=== PATIENT | female | born 1965 | race Caucasian/White ===

== ENCOUNTER 2017-08-10 10:16 | Emergency (ER) | payer SELFPAY ==
[~2017-08-10] VITALS: Ht 162.6 cm; Wt 65.0 kg
[~2017-08-10 10:16] MED LIST: ADIPEX-P37.5 MG OR; CELEXA20 MG PO; COLCRYS0.6 MG PO; CYCLOBENZAPR5 MG PO; FLEXERIL5 MG PO; FLUOXETINE40 MG PO; LISINOPRIL10 MG OR; LORTAB 7.5 OR; LORTAB5 OR; LOSARTAN POT50 MG PO; MAXZIDE OR; NAPROSYN375 MG PO; PROZAC20 MG PO; TENORMIN OR; TENORMIN25 MG OR; TENORMIN50 MG PO; TIZANIDINE4 MG PO; TORADOL OR; VICODIN1 TAB OR; VICOPROFEN OR
[2017-08-10] MEDS ORDERED: MAXZIDE-2537.5 MG/TA PO (10:45)
[2017-08-10] MEDS ORDERED: TRAMADOL HCL50 MG PO (10:47)
[2017-08-10] MEDS ORDERED: HYDROXYCHLOR200 M1 PO (10:48)
[2017-08-10] MEDS ORDERED: GABAPENTIN100 MG PO (10:49)
[2017-08-10] MEDS ORDERED: METOPROL TAR25 MG PO (10:49)
[2017-08-10] MEDS ORDERED: LISINOPRIL10 MG PO (10:50)
[2017-08-10] MEDS ORDERED: METHOCARBAM500 MG PO (10:51)
[2017-08-10 11:29] LABS: HEMATOCRIT 37.7 % (37.0-47.0); HEMOGLOBIN 13.2 g/dl (12.0-16.0); IMMATURE GRANULOCYTES 0.7 % (0.0-1.0); MEAN CELL VOLUME 100.3 fL CALC (80.0-100.0); MEAN CORPUSCULAR HGB 35.1 pG CALC (26.0-32.0); NEUT# 7.35 thou/uL (2.00-7.15); RED BLOOD COUNT 3.76 mill/uL (4.20-5.60); RED CELL DISTRI WIDTH 11.9 % (11.5-15.5)
[2017-08-10 11:39] LABS: ALBUMIN 4.4 g/dL (3.2-5.0); ALKALINE PHOSPHATASE 87 u/l (38-126); ANION GAP 17 (6-22 (CALC)); BILIRUBIN, TOTAL 0.4 mg/dL (0.0-1.4); BUN 15 mg/dL (7-17); BUN/CREATININE RATIO 16 (12-20 (CALC)); CALCIUM 9.9 mg/dL (8.4-10.2); CARBON DIOXIDE 23 mmol/l (22-30); CHLORIDE 101 mmol/l (95-108); CREATININE 0.9 mg/dL (0.5-1.0); GFR > 60 ML/MIN (>=60 (CALC)); GFR FOR AFR.AMER. > 60 ML/MIN (>=60 (CALC)); GLUCOSE 110 mg/dL (65-105); POTASSIUM 4.5 mmol/l (3.5-5.1); SGOT/AST 22 u/l (14-36); SGPT/ALT 34 u/l (9-52); SODIUM 136 mmol/l (137-146); TOTAL PROTEIN 6.9 g/dL (6.3-8.2)
[2017-08-10] MEDS ORDERED: INDOCIN25 MG PO (11:54)
[2017-08-10] MEDS ORDERED: ULTRAM50 M1 PO (11:54)
[2017-08-10] MEDS ORDERED: AMOXICILLIN500 MG PO (11:54)
[2017-08-10 12:11] VITALS: BP 125/81
== END 2017-08-10 12:11 | disposition home or self-care (01) | DRG 554 ==
LOC: ED 10:16
PROVIDERS: Emergency Medicine
DX: M10.9 Gout, unspecified (principal); L03.031 Cellulitis of right toe; M25.474 Effusion, right foot; M25.571 Pain in right ankle and joints of right foot

== ENCOUNTER 2018-08-20 08:51 | Emergency (ER) | payer MEDICARE ==
[~2018-08-20] VITALS: Ht 162.6 cm; Wt 68.0 kg
[~2018-08-20 08:51] MED LIST changes: +AMOXICILLIN500 MG PO; +GABAPENTIN100 MG PO; +HYDROXYCHLOR200 M1 PO; +INDOCIN25 MG PO; +LISINOPRIL10 MG PO; +MAXZIDE-2537.5 MG/TA PO; +METHOCARBAM500 MG PO; +METOPROL TAR25 MG PO; +TRAMADOL HCL50 MG PO; +ULTRAM50 M1 PO
[2018-08-20] MEDS ORDERED: TORADOL PO (09:25)
[2018-08-20] MEDS ORDERED: MEDDOSEPAK PO (09:25)
[2018-08-20 09:29] VITALS: BP 132/83
[2018-08-20] MEDS ORDERED: DICLOFENAC50 MG PO (09:42)
== END 2018-08-20 09:47 | disposition home or self-care (01) ==
LOC: ED 08:51
DX: G89.29 Other chronic pain (principal); M54.5 Low back pain; X50.1XXA Overexertion from prolonged static or awkward postures, initial encounter; Y92.009 Unspecified place in unspecified non-institutional (private) residence as the place of occurrence of the external cause

== ENCOUNTER → 2018-10-12 | Outpatient (REF) | payer MEDICARE ==
[~2018-10-12] MED LIST changes: +DICLOFENAC50 MG PO; +MEDDOSEPAK PO; +TORADOL PO
[2018-10-12 14:09] LABS: HEMATOCRIT 35.8 % (37.0-47.0); HEMOGLOBIN 12.6 g/dl (12.0-16.0); MEAN CELL VOLUME 100.6 fL CALC (80.0-100.0); MEAN CORPUSCULAR HGB 35.4 pG CALC (26.0-32.0); MEAN CORPUSCULAR HGB CONC 35.2 g/L CALC (32.0-36.0); NEUT# 5.55 thou/uL (2.00-7.15); RED BLOOD COUNT 3.56 mill/uL (4.20-5.60); RED CELL DISTRI WIDTH 11.9 % (11.5-15.5)
[2018-10-12 14:21] LABS: INTERNATIONAL NORMALIZED RATIO 0.9 RATIO (0.7-1.3); PROTHROMBIN TIME 9.6 SECONDS (9.0-12.5)
[2018-10-12 14:23] LABS: ALKALINE PHOSPHATASE 82 u/l (38-126); ANION GAP 13 (6-22 (CALC)); BILIRUBIN, TOTAL 0.3 mg/dL (0.0-1.4); BUN 17 mg/dL (7-17); BUN/CREATININE RATIO 17 (12-20 (CALC)); CARBON DIOXIDE 26 mmol/l (22-30); CHLORIDE 95 mmol/l (95-108); GFR 58 ML/MIN (>=60 (CALC)); GFR FOR AFR.AMER. > 60 ML/MIN (>=60 (CALC)); POTASSIUM 4.3 mmol/l (3.5-5.1); SGOT/AST 16 u/l (14-36); SODIUM 131 mmol/l (137-146); TOTAL PROTEIN 6.5 g/dL (6.3-8.2)
== END | disposition home or self-care (01) ==
LOC: LAB 13:19
PROVIDERS: ATTEND Internal Medicine Cardiovascular Disease
DX: I25.119 Atherosclerotic heart disease of native coronary artery with unspecified angina pectoris (principal); I10 Essential (primary) hypertension; R06.02 Shortness of breath; Z79.02 Long term (current) use of antithrombotics/antiplatelets

== ENCOUNTER 2019-10-19 | Emergency (ER) | payer MEDICARE ==
[2019-10-19] MEDS ORDERED: AMITRIPTYLIN10 MG PO (14:05)
[2019-10-19] MEDS ORDERED: LYRICA50 MG PO (14:06)
== END 2019-10-19 16:29 | disposition home or self-care (01) ==
DX: M25.531 Pain in right wrist (principal); I10 Essential (primary) hypertension; G62.9 Polyneuropathy, unspecified; H91.90 Unspecified hearing loss, unspecified ear; F17.210 Nicotine dependence, cigarettes, uncomplicated

== ENCOUNTER 2020-03-12 10:10 | Emergency (ER) | payer MEDICARE ==
[~2020-03-12] VITALS: Ht 162.6 cm; Wt 73.0 kg
[~2020-03-12 10:10] MED LIST changes: +AMITRIPTYLIN10 MG PO; +LYRICA50 MG PO
[2020-03-12 11:36] VITALS: BP 141/8
[2020-03-12] MEDS ORDERED: VOLTAREN1%GEL TOP (11:36)
== END 2020-03-12 11:45 | disposition home or self-care (01) ==
LOC: ED 10:10
DX: M54.5 Low back pain (principal); I10 Essential (primary) hypertension; G62.9 Polyneuropathy, unspecified; F17.210 Nicotine dependence, cigarettes, uncomplicated

== ENCOUNTER 2021-02-18 08:17 | Day surgery (SDC) | payer MEDICARE ==
[~2021-02-18 08:17] MED LIST changes: +FAMOTIDINE20 M1 PO; +FLUOXETINE20 MG PO; +GABAPENTIN800 MG PO; +KLONOPIN0.5 MG PO; +METOPROL TAR25 M1 PO; +PAIN RELIEF EX500 M1 PO; +VOLTAREN1%GEL TOP
[2021-02-18 11:03] VITALS: BP 148/78
--- NOTE | 2021-03-03 15:19 | NUR ---
PER PHYSICIAN, PATIENT NOTIFIED OF COLONOSCOPY REPORT, BIOPSY RESULTS, REPEAT X 10 YEARS. PATIENT AGREED WITH RESULTS GIVEN, REPORT, RESULTS FORWARDED TO PRIMARY CARE FOR CONTINUITY OF CARE. PT VOICED NO CONCERNS AT TIME OF CALL.
== END 2021-02-18 11:24 | disposition home or self-care (01) ==
LOC: ENDO 08:17
PROVIDERS: ATTEND Surgery
PROC: 0DBF8ZX Excision of Right Large Intestine, Via Natural or Artificial Opening Endoscopic, Diagnostic (ICD-10-PCS; principal; 2021-02-18)
PROC: 0DBN8ZX Excision of Sigmoid Colon, Via Natural or Artificial Opening Endoscopic, Diagnostic (ICD-10-PCS; 2021-02-18)
DX: Z12.11 Encounter for screening for malignant neoplasm of colon (principal); K63.5 Polyp of colon; K50.10 Crohn's disease of large intestine without complications; K64.8 Other hemorrhoids; K64.4 Residual hemorrhoidal skin tags; I10 Essential (primary) hypertension; F17.210 Nicotine dependence, cigarettes, uncomplicated

== ENCOUNTER 2021-04-15 18:50 | Emergency (ER) | payer MEDICARE ==
[~2021-04-15] VITALS: Ht 162.6 cm; Wt 70.0 kg
[2021-04-15 20:33] LABS: HEMATOCRIT 34.4 % (37.0-47.0); HEMOGLOBIN 11.8 g/dl (12.0-16.0); IMMATURE GRANULOCYTES 0.8 % (0.0-5.0); MEAN CELL VOLUME 101.8 fL CALC (80.0-100.0); MEAN CORPUSCULAR HGB 34.9 pG CALC (26.0-32.0); MEAN CORPUSCULAR HGB CONC 34.3 g/dL CAL (32.0-36.0); NEUT# 5.83 thou/uL (2.00-7.15); RED BLOOD COUNT 3.38 mill/uL (4.20-5.60); RED CELL DISTRI WIDTH 11.8 % (11.5-15.5)
[2021-04-15 20:47] LABS: ALBUMIN 3.2 g/dL (3.2-5.0); ALKALINE PHOSPHATASE 66 u/l (38-126); BILIRUBIN, TOTAL 0.5 mg/dL (0.0-1.4); BUN 10 mg/dL (7-17); BUN/CREATININE RATIO 10 (12-20 (CALC)); CHLORIDE 96 mmol/l (95-108); CREATININE 0.9 mg/dL (0.5-1.0); GFR > 60 ML/MIN (>=60 (CALC)); GFR FOR AFR.AMER. > 60 ML/MIN (>=60 (CALC)); POTASSIUM 3.5 mmol/l (3.5-5.1); SGOT/AST 38 u/l (14-36); SODIUM 126 mmol/l (137-146); TOTAL PROTEIN 6.2 g/dL (6.3-8.2)
[2021-04-15 20:53] LABS: PROTHROMBIN TIME 10.1 SECONDS (9.0-12.5)
[2021-04-15 20:57] LABS: ANION GAP 13 (6-22 (CALC)); CARBON DIOXIDE 21 mmol/l (22-30)
[2021-04-15 21:20] LABS: URINE BILIRUBIN - DIPSTICK NEGATIVE (NEGATIVE); URINE BLOOD DIPSTICK NEGATIVE (NEGATIVE); URINE COLOR YELLOW; URINE GLUCOSE - DIPSTICK NEGATIVE (NEGATIVE); URINE KETONE NEGATIVE (NEGATIVE); URINE LEUK ESTERASE TRACE (NEGATIVE); URINE NITRITE - DIPSTICK NEGATIVE (Negative); URINE PROTEIN - DIPSTICK NEGATIVE (NEG-TRACE); URINE SPECIFIC GRAVITY 1.015; URINE UROBILINOGEN - DIPSTICK 0.2 E.U./dL (0.2)
[2021-04-15 23:39] VITALS: BP 139/72
== END 2021-04-15 23:31 | disposition home or self-care (01) ==
LOC: ED 18:50
PROVIDERS: Emergency Medicine
DX: S01.412A Laceration without foreign body of left cheek and temporomandibular area, initial encounter (principal); E87.1 Hypo-osmolality and hyponatremia; I10 Essential (primary) hypertension; M32.9 Systemic lupus erythematosus, unspecified; F17.200 Nicotine dependence, unspecified, uncomplicated; W01.0XXA Fall on same level from slipping, tripping and stumbling without subsequent striking against object, initial encounter; Y93.K1 Activity, walking an animal

== ENCOUNTER 2021-07-23 11:49 | Emergency (ER) | payer MEDICARE ==
[~2021-07-23] VITALS: Ht 162.6 cm; Wt 60.3 kg
[2021-07-23] MEDS ORDERED: IBUPROFEN600 MG PO (14:41)
[2021-07-23 15:10] VITALS: BP 119/87
== END 2021-07-23 15:10 | disposition home or self-care (01) ==
LOC: ED 11:49
DX: S93.402A Sprain of unspecified ligament of left ankle, initial encounter (principal); I10 Essential (primary) hypertension; F17.200 Nicotine dependence, unspecified, uncomplicated; W10.9XXA Fall (on) (from) unspecified stairs and steps, initial encounter; Y93.K1 Activity, walking an animal; Y92.009 Unspecified place in unspecified non-institutional (private) residence as the place of occurrence of the external cause

== ENCOUNTER 2021-10-12 13:56 | Emergency (ER) | payer MEDICARE ==
[~2021-10-12] VITALS: Ht 162.6 cm; Wt 53.0 kg
[~2021-10-12 13:56] MED LIST changes: +IBUPROFEN600 MG PO
[2021-10-12 14:15] VITALS: BP 136/83
[2021-10-12 14:46] LABS: HEMATOCRIT 34.2 % (37.0-47.0); HEMOGLOBIN 11.1 g/dl (12.0-16.0); IMMATURE GRANULOCYTES 0.3 % (0.0-5.0); MEAN CELL VOLUME 105.2 fL CALC (80.0-100.0); MEAN CORPUSCULAR HGB 34.2 pG CALC (26.0-32.0); MEAN CORPUSCULAR HGB CONC 32.5 g/dL CAL (32.0-36.0); NEUT# 7.63 thou/uL (2.00-7.15); RED BLOOD COUNT 3.25 mill/uL (4.20-5.60)
[2021-10-12 14:55] LABS: ALKALINE PHOSPHATASE 106 u/l (38-126); ANION GAP 11 (6-22 (CALC)); BILIRUBIN, TOTAL 0.7 mg/dL (0.0-1.4); BUN 10 mg/dL (7-17); BUN/CREATININE RATIO 12 (12-20 (CALC)); CHLORIDE 102 mmol/l (95-108); CREATININE 0.8 mg/dL (0.5-1.0); GFR > 60 ML/MIN (>=60 (CALC)); GFR FOR AFR.AMER. > 60 ML/MIN (>=60 (CALC)); POTASSIUM 3.6 mmol/l (3.5-5.1); SGOT/AST 25 u/l (14-36); SODIUM 133 mmol/l (137-146); TOTAL PROTEIN 5.8 g/dL (6.3-8.2)
[2021-10-12 14:56] LABS: CARBON DIOXIDE 24 mmol/l (22-30)
[2021-10-12 15:07] LABS: MYOGLOBIN 160 ng/mL (0 - 62)
[2021-10-12] MEDS ORDERED: NAPROXEN500 MG PO (16:00)
[2021-10-12 16:04] VITALS: BP 136/83
== END 2021-10-12 16:07 | disposition home or self-care (01) ==
LOC: ED 13:56
PROVIDERS: Emergency Medicine
DX: S00.03XA Contusion of scalp, initial encounter (principal); I10 Essential (primary) hypertension; F17.200 Nicotine dependence, unspecified, uncomplicated; W01.0XXA Fall on same level from slipping, tripping and stumbling without subsequent striking against object, initial encounter; Y92.89 Other specified places as the place of occurrence of the external cause
CPT/HCPCS: J0878

== ENCOUNTER 2022-04-14 21:39 | Emergency (ER) | payer MEDICARE ==
[~2022-04-14] VITALS: Ht 162.6 cm; Wt 60.0 kg
[~2022-04-14 21:39] MED LIST changes: +NAPROXEN500 MG PO
[2022-04-14 21:54] VITALS: BP 154/86
[2022-04-14 22:00] VITALS: BP 153/85
[2022-04-14 22:31] VITALS: BP 170/97
[2022-04-14 22:35] LABS: IMMATURE GRANULOCYTES 0.4 % (0.0-5.0); MEAN CELL VOLUME 102.8 fL CALC (80.0-100.0); MEAN CORPUSCULAR HGB 34.5 pG CALC (26.0-32.0); MEAN CORPUSCULAR HGB CONC 33.5 g/dL CAL (32.0-36.0); NEUT# 7.21 thou/uL (2.00-7.15); RED BLOOD COUNT 3.19 mill/uL (4.20-5.60); RED CELL DISTRI WIDTH 12.9 % (11.5-15.5)
[2022-04-14 22:39] LABS: HEMATOCRIT 32.8 % (37.0-47.0)
[2022-04-14 23:02] LABS: MYOGLOBIN 87 ng/mL (0 - 62)
[2022-04-14 23:29] LABS: ALBUMIN 3.2 g/dL (3.2-5.0); ALKALINE PHOSPHATASE 81 u/l (38-126); BILIRUBIN, TOTAL 0.3 mg/dL (0.0-1.4); BUN 13 mg/dL (7-17); BUN/CREATININE RATIO 16 (12-20 (CALC)); CHLORIDE 110 mmol/l (95-108); CREATININE 0.8 mg/dL (0.5-1.0); GFR FOR AFR.AMER. > 60 ML/MIN (>=60 (CALC)); GFR OTHER RACES > 60 ML/MIN (>=60 (CALC)); POTASSIUM 3.6 mmol/l (3.5-5.1); SGOT/AST 22 u/l (14-36); SODIUM 142 mmol/l (137-146); TOTAL PROTEIN 5.9 g/dL (6.3-8.2)
[2022-04-14 23:30] VITALS: BP 160/85
[2022-04-14 23:38] LABS: ANION GAP 12 (6-22 (CALC)); CARBON DIOXIDE 24 mmol/l (22-30)
[2022-04-15] VITALS (8 sets, daily range): BP systolic 158–172; BP diastolic 89–97
[2022-04-15 01:21] LABS: URINE BILIRUBIN - DIPSTICK NEGATIVE (NEGATIVE); URINE BLOOD DIPSTICK NEGATIVE (NEGATIVE); URINE COLOR YELLOW; URINE GLUCOSE - DIPSTICK NEGATIVE (NEGATIVE); URINE KETONE NEGATIVE (NEGATIVE); URINE PH 5.5 (4.5-8.0); URINE PROTEIN - DIPSTICK NEGATIVE (NEG-TRACE); URINE UROBILINOGEN - DIPSTICK 0.2 E.U./dL (0.2)
[2022-04-15 01:22] LABS: URINE NITRITE - DIPSTICK POSITIVE (Negative)
[2022-04-15 01:24] LABS: URINE LEUK ESTERASE NEGATIVE (NEGATIVE)
[2022-04-15 01:37] LABS: URINE BACTERIA MANY hpf; URINE EPITHELIAL CELLS FEW EPI/hpf (0-FEW)
== END 2022-04-15 03:08 | disposition short-term general hospital (02) ==
LOC: ED 21:39
PROVIDERS: Emergency Medicine
DX: S72.142A Displaced intertrochanteric fracture of left femur, initial encounter for closed fracture (principal); W18.30XA Fall on same level, unspecified, initial encounter; Y92.009 Unspecified place in unspecified non-institutional (private) residence as the place of occurrence of the external cause

== ENCOUNTER 2022-06-07 13:26 | Emergency (ER) | payer MEDICARE ==
[~2022-06-07] VITALS: Ht 162.6 cm; Wt 56.0 kg
[2022-06-07 14:14] LABS: ALBUMIN 3.7 g/dL (3.2-5.0); ALKALINE PHOSPHATASE 92 u/l (38-126); AMYLASE 61 u/l (30-110); ANION GAP 12 (6-22 (CALC)); BILIRUBIN, TOTAL 0.3 mg/dL (0.0-1.4); BUN 13 mg/dL (7-17); BUN/CREATININE RATIO 19 (12-20 (CALC)); CARBON DIOXIDE 27 mmol/l (22-30); CHLORIDE 104 mmol/l (95-108); CREATININE 0.7 mg/dL (0.5-1.0); GFR FOR AFR.AMER. > 60 ML/MIN (>=60 (CALC)); GFR OTHER RACES > 60 ML/MIN (>=60 (CALC)); LIPASE 128 u/l (23-300); POTASSIUM 3.6 mmol/l (3.5-5.1); SGOT/AST 27 u/l (14-36); SODIUM 141 mmol/l (137-146); TOTAL PROTEIN 6.6 g/dL (6.3-8.2)
[2022-06-07 14:36] LABS: HEMATOCRIT 35.7 % (37.0-47.0); HEMOGLOBIN 11.4 g/dl (12.0-16.0); IMMATURE GRANULOCYTES 0.3 % (0.0-5.0); MEAN CELL VOLUME 101.7 fL CALC (80.0-100.0); MEAN CORPUSCULAR HGB 32.5 pG CALC (26.0-32.0); MEAN CORPUSCULAR HGB CONC 31.9 g/dL CAL (32.0-36.0); NEUT# 4.34 thou/uL (2.00-7.15); RED BLOOD COUNT 3.51 mill/uL (4.20-5.60); RED CELL DISTRI WIDTH 12.6 % (11.5-15.5)
[2022-06-07 15:22] LABS: URINE BILIRUBIN - DIPSTICK NEGATIVE (NEGATIVE); URINE BLOOD DIPSTICK TRACE-LYSED (NEGATIVE); URINE COLOR YELLOW; URINE GLUCOSE - DIPSTICK NEGATIVE (NEGATIVE); URINE KETONE NEGATIVE (NEGATIVE); URINE LEUK ESTERASE TRACE (NEGATIVE); URINE PH 5.5 (4.5-8.0); URINE PROTEIN - DIPSTICK NEGATIVE (NEG-TRACE); URINE UROBILINOGEN - DIPSTICK 0.2 E.U./dL (0.2)
[2022-06-07 15:27] LABS: URINE NITRITE - DIPSTICK POSITIVE (Negative)
[2022-06-07 15:36] LABS: URINE RBC 0-2 RBC/hpf (0-5); URINE SQUAMOUS EPITHELIAL CELL FEW EPI/hpf (0-FEW)
[2022-06-07 17:44] VITALS: BP 131/77
[2022-06-07] MEDS ORDERED: NAPROXEN500 MG PO (17:52)
[2022-06-07] MEDS ORDERED: HYDROCO/APAP1 TA9 PO (17:52)
== END 2022-06-07 18:32 | disposition home or self-care (01) ==
LOC: ED 13:26
PROVIDERS: Nurse Practitioner
DX: S22.32XA Fracture of one rib, left side, initial encounter for closed fracture (principal); I10 Essential (primary) hypertension; F17.200 Nicotine dependence, unspecified, uncomplicated; W01.0XXA Fall on same level from slipping, tripping and stumbling without subsequent striking against object, initial encounter; Y92.009 Unspecified place in unspecified non-institutional (private) residence as the place of occurrence of the external cause; Y99.9 Unspecified external cause status
CPT/HCPCS: Q9967

== ENCOUNTER 2023-03-21 12:13 | Emergency (ER) | payer MEDICARE ==
[~2023-03-21] VITALS: Ht 162.6 cm; Wt 70.6 kg
[2023-03-21] VITALS (7 sets, daily range): BP systolic 121–175; BP diastolic 84–91
[~2023-03-21 12:13] MED LIST changes: +HYDROCO/APAP1 TA9 PO
[2023-03-21] MEDS ORDERED: METHOCARBAMOL500 MG PO (13:55)
[2023-03-21] MEDS ORDERED: NAPROXEN500 MG PO (13:55)
[2023-03-21] MEDS ORDERED: PREDNISONE10 MG PO (13:55)
[2023-03-21] MEDS ORDERED: LORTAB 7.57.5 MG PO (14:04)
== END 2023-03-21 14:54 | disposition home or self-care (01) ==
LOC: ED 12:13
DX: M47.27 Other spondylosis with radiculopathy, lumbosacral region (principal); I10 Essential (primary) hypertension; F17.200 Nicotine dependence, unspecified, uncomplicated

== ENCOUNTER 2023-04-12 13:19 | Emergency (ER) | payer MEDICARE ==
[2023-04-12] VITALS (14 sets, daily range): BP systolic 147–171; BP diastolic 82–123
[~2023-04-12] VITALS: Ht 162.6 cm; Wt 65.7 kg
[~2023-04-12 13:19] MED LIST changes: +LORTAB 7.57.5 MG PO; +METHOCARBAMOL500 MG PO; +OMEPRAZOLE DR40 MG PO; +PREDNISONE10 MG PO
[2023-04-12 16:30] LABS: BASO% 0.2 % (0-3); EOS% 2.2 % (0-8); HEMATOCRIT 40.8 % (37.0-47.0); HEMOGLOBIN 13.1 g/dl (12.0-16.0); IMMATURE GRANULOCYTES 0.3 % (0.0-5.0); LYMPH% 14.2 % (15-41); MEAN CELL VOLUME 101.2 fL CALC (80.0-100.0); MEAN CORPUSCULAR HGB 32.5 pG CALC (26.0-32.0); MEAN CORPUSCULAR HGB CONC 32.1 g/dL CAL (32.0-36.0); MONO% 4.6 % (2-13); NEUT# 10.1 thou/uL (2.00-7.15); NEUT% 78.5 % (42-76); RED BLOOD COUNT 4.03 mill/uL (4.20-5.60); RED CELL DISTRI WIDTH 13.2 % (11.5-15.5)
[2023-04-12 16:33] LABS: URINE BILIRUBIN - DIPSTICK Negative (NEGATIVE); URINE BLOOD DIPSTICK Trace-intact (NEGATIVE); URINE GLUCOSE - DIPSTICK Negative (NEGATIVE); URINE KETONE Negative (NEGATIVE); URINE NITRITE - DIPSTICK Negative (Negative); URINE PROTEIN - DIPSTICK Negative (NEG-TRACE); URINE UROBILINOGEN - DIPSTICK 0.2 E.U./dL (0.2)
[2023-04-12 16:34] LABS: URINE COLOR Yellow; URINE LEUK ESTERASE Small (NEGATIVE)
[2023-04-12 16:42] LABS: ALBUMIN 3.5 g/dL (3.2-5.0); ANION GAP 10 (6-22 (CALC)); BILIRUBIN, TOTAL 0.4 mg/dL (0.02-1.3); BUN 12 mg/dL (7-17); BUN/CREATININE RATIO 14 (12-20 (CALC)); CARBON DIOXIDE 29 mmol/l (22-30); CHLORIDE 106 mmol/l (95-108); CREATININE 0.9 mg/dL (0.5-1.0); GFR FOR AFR.AMER. > 60 ML/MIN (>=60 (CALC)); GFR OTHER RACES > 60 ML/MIN (>=60 (CALC)); POTASSIUM 3.6 mmol/l (3.5-5.1); SGOT/AST 34 u/l (14-36); SODIUM 142 mmol/l (137-146); TOTAL PROTEIN 6.8 g/dL (6.3-8.2)
[2023-04-12 16:47] LABS: ALKALINE PHOSPHATASE 269 u/l (38-126)
--- NOTE | 2023-04-14 11:17 | NUR ---
[facility] ed [facility] to KATIE herrera at fax [phone]
== END 2023-04-12 18:20 | disposition short-term general hospital (02) ==
LOC: ED 13:19
PROVIDERS: Nurse Practitioner
DX: M84.48XA Pathological fracture, other site, initial encounter for fracture (principal); N39.0 Urinary tract infection, site not specified; B96.20 Unspecified Escherichia coli [E. coli] as the cause of diseases classified elsewhere; I10 Essential (primary) hypertension; F17.200 Nicotine dependence, unspecified, uncomplicated

== ENCOUNTER 2023-10-18 14:56 | Emergency (ER) | payer MEDICARE ==
[2023-10-18] VITALS (12 sets, daily range): BP systolic 159–197; BP diastolic 94–116
[~2023-10-18] VITALS: Ht 162.6 cm; Wt 62.0 kg
[2023-10-18] MEDS ORDERED: NITROGLYCERIN 2% OINT UD 1 GM/PAK TD ONE (15:45)
[2023-10-18] MEDS ORDERED: ASPIRIN 81 MG/TAB PO ONE (15:45)
[2023-10-18 16:00] LABS: BASO% 0.2 % (0-3); HEMATOCRIT 40.8 % (37.0-47.0); HEMOGLOBIN 13.6 g/dl (12.0-16.0); IMMATURE GRANULOCYTES 0.6 % (0.0-5.0); LYMPH% 50.2 % (15-41); MEAN CELL VOLUME 102.3 fL CALC (80.0-100.0); MEAN CORPUSCULAR HGB 34.1 pG CALC (26.0-32.0); MEAN CORPUSCULAR HGB CONC 33.3 g/dL CAL (32.0-36.0); MONO% 14.2 % (2-13); NEUT# 2.23 thou/uL (2.00-7.15); NEUT% 34.8 % (42-76); RED BLOOD COUNT 3.99 mill/uL (4.20-5.60); RED CELL DISTRI WIDTH 14.5 % (11.5-15.5)
[2023-10-18 16:24] LABS: ALBUMIN 3.2 g/dL (3.2-5.0); ALKALINE PHOSPHATASE 186 u/l (38-126); ANION GAP 8 (6-22 (CALC)); BILIRUBIN, TOTAL 0.5 mg/dL (0.02-1.3); BUN 12 mg/dL (7-17); BUN/CREATININE RATIO 17 (12-20 (CALC)); CARBON DIOXIDE 29 mmol/l (22-30); CHLORIDE 106 mmol/l (95-108); CREATININE 0.7 mg/dL (0.5-1.0); GFR FOR AFR.AMER. > 60 ML/MIN (>=60 (CALC)); GFR OTHER RACES > 60 ML/MIN (>=60 (CALC)); LIPASE 102 u/l (23-300); POTASSIUM 3.2 mmol/l (3.5-5.1); SGOT/AST 47 u/l (14-36); SODIUM 140 mmol/l (137-146)
[2023-10-18 16:25] LABS: D-DIMER 0.65 mg/L (0.19-0.60)
[2023-10-18 16:27] LABS: INTERNATIONAL NORMALIZED RATIO 1.1 RATIO (0.7-1.3); PROTHROMBIN TIME 10.6 SECONDS (9.0-12.5)
[2023-10-18 16:35] LABS: URINE BILIRUBIN - DIPSTICK Negative (NEGATIVE); URINE BLOOD DIPSTICK Trace-lysed (NEGATIVE); URINE GLUCOSE - DIPSTICK Negative (NEGATIVE); URINE KETONE Negative (NEGATIVE); URINE LEUK ESTERASE Negative (NEGATIVE); URINE NITRITE - DIPSTICK Negative (Negative); URINE PROTEIN - DIPSTICK Negative (NEG-TRACE); URINE UROBILINOGEN - DIPSTICK 0.2 E.U./dL (0.2)
[2023-10-18] MEDS ORDERED: DILTIAZEM HCL 25 MG/5 ML SDV IV ONE (16:35)
[2023-10-18 16:38] LABS: URINE COLOR Yellow
[2023-10-18] MEDS ORDERED: PREDNISONE20 MG PO (17:32)
[2023-10-18] MEDS ORDERED: IBUPROFEN 800 MG/TAB PO ONE (17:35)
== END 2023-10-18 18:21 | disposition home or self-care (01) ==
LOC: ED 14:56
PROVIDERS: Family Medicine
DX: I10 Essential (primary) hypertension (principal); M32.9 Systemic lupus erythematosus, unspecified; F17.210 Nicotine dependence, cigarettes, uncomplicated

== ENCOUNTER 2024-03-06 04:33 | Inpatient (IN) | payer MEDICARE ==
[2024-03-06] VITALS (55 sets, daily range): BP systolic 123–193; BP diastolic 62–109
[~2024-03-06] VITALS: Ht 162.6 cm; Wt 60.4 kg
[~2024-03-06 04:33] MED LIST changes: +ASPIRINCHW 81MG PO; +CARISOPRODOL250 MG PO; +DOXYCYCLINE100 MG PO; +FLORASTOR250 M1 PO; +FLUTICASONE PR50 MC1; +IPRATROPIUM BR0.02 % NEB; +KLONOPIN1 MG PO; +LEVOFLOXACIN250 M1 PO; +MULTIVITAMIN1 TA1 PO; +OS-CAL 500500 M1 PO; +PREDNISONE20 MG PO; +PROZAC40 MG PO; +TAM75CAP PO; +TRAZODONE HCL50 MG PO; +VITAMIN D-32000 UNI1 PO; +WELLBUTRIN XL300 MG PO
--- NOTE | 2024-03-06 04:33 | NUR ---
PT ARRIVED VIA EMS ON STRETCHER. TAKEN TO ROOM 13. TRIAGED AT BEDSIDE. PT ON O2 @2 LPM
[2024-03-06] MEDS ORDERED: MORPHINE SULFATE 4 MG/ML VIAL IV ONE (04:50)
[2024-03-06] MEDS ORDERED: LOSARTAN POTASS50 MG PO (05:24)
[2024-03-06] MEDS ORDERED: LASIX 20 MG TAB20 MG PO (05:24)
[2024-03-06] MEDS ORDERED: NARCAN4 MG/0.1 M (05:25)
[2024-03-06] MEDS ORDERED: OXY1 (05:26)
[2024-03-06] MEDS ORDERED: TRELEGY ELLIPTA1 AE1 IN (05:28)
--- NOTE | 2024-03-06 06:00 | NUR ---
PT RESTING. MEDICATED. XRAY/EKG COMPLETED. LABS DRAWN. PT VOIDED ON BEDPAN.
[2024-03-06 06:07] LABS: BASO% 0.2 % (0-3); EOS% 0.6 % (0-8); HEMOGLOBIN 11.9 g/dl (12.0-16.0); IMMATURE GRANULOCYTES 0.2 % (0.0-5.0); LYMPH% 18.9 % (15-41); MEAN CELL VOLUME 97.1 fL CALC (80.0-100.0); MEAN CORPUSCULAR HGB 31.4 pG CALC (26.0-32.0); MEAN CORPUSCULAR HGB CONC 32.3 g/dL CAL (32.0-36.0); MONO% 8.4 % (2-13); NEUT# 8.93 thou/uL (2.00-7.15); NEUT% 71.7 % (42-76); RED BLOOD COUNT 3.79 mill/uL (4.20-5.60); RED CELL DISTRI WIDTH 13.9 % (11.5-15.5)
[2024-03-06 06:08] LABS: HEMATOCRIT 36.8 % (37.0-47.0)
[2024-03-06 06:16] LABS: ALBUMIN 3.7 g/dL (3.2-5.0); CREATININE 0.9 mg/dL (0.5-1.0); POTASSIUM 3.7 mmol/l (3.5-5.1); TOTAL PROTEIN 6.8 g/dL (6.3-8.2)
[2024-03-06 06:22] LABS: BILIRUBIN, TOTAL 1.1 mg/dL (0.02-1.3)
--- NOTE | 2024-03-06 07:05 | NUR ---
ASSUMED CARE OF THE PATIENT FROM OSMANI GEORGE RN. BP ELEVATED TO 190/108. SPOKE WITH DR. ROMERO AND LABETOLOL 20MG ORDERED.
[2024-03-06] MEDS ORDERED: LABETALOL HCL 100 MG/20 ML VIAL IV ONE ×2 (07:30→08:40)
--- NOTE | 2024-03-06 08:21 | NUR ---
PATIENT TAKEN TO RADIOLOGY FOR CTA OF THE CHEST. R/O PE
--- NOTE | 2024-03-06 08:47 | NUR ---
AN ADDITIONAL 20MG OF LABETOLOL ORDERED BY DR. ROMERO. BP DECREASED SLOWLY AND ONCE PATIENT RETURNED [facility] IT WENT RIGHT BACK UP TO 190/108.
[2024-03-06] MEDS ORDERED: AZITHROMYCIN 500 MG in SODIUM CHLORIDE 0.9% 250 ML IV ONE (09:10)
[2024-03-06] MEDS ORDERED: cefTRIAXone SODIUM 2 GM in SODIUM CHLORIDE 0.9% 100 ML IV ONE (09:10)
--- NOTE | 2024-03-06 10:00 | NUR ---
AN ADDITIONAL IV INITIATED IN THERIGHT AC, 18G. ROCEPHIN GIVEN AND CARDENE GTT INITIATED PER HOSPITAL PROTOCOL. VERBAL REPORT CALLED TO ICU.
--- NOTE | 2024-03-06 10:00 | NUR ---
pts nausea resolved, all her regular po meds given , pain 0/10 with good relief from meds. pt resting vomfortably. given small sips of water no nausea. all cardiac monitors on. call sosa prado.
[2024-03-06] MEDS ORDERED: AZITHROMYCIN 500 MG/VIAL SDV IV ONE (10:01)
[2024-03-06] MEDS ORDERED: niCARdipine HCL 25 MG/10 ML SDV IV ONE (10:02)
[2024-03-06] MEDS ORDERED: NITROGLYCERIN 0.4 MG/TAB SL PRN (11:25)
[2024-03-06] MEDS ORDERED: MORPHINE SULFATE 4 MG/ML VIAL IV PRN (11:25)
[2024-03-06] MEDS ORDERED: ACETAMINOPHEN 325 MG/TAB PO PRN (11:35)
[2024-03-06] MEDS ORDERED: MAGNESIUM HYDROXIDE 30 ML UDC PO PRN (11:35)
[2024-03-06] MEDS ORDERED: clonazePAM 1 MG/TAB PO PRN (11:45)
--- NOTE | 2024-03-06 12:00 | NUR ---
REPORT RECEIVED OVER THE PHONE FROM KATIE AVITIA. PT BROUGHT UP TO ICU BY STRETCHER AT 1115 ON OXYGEN AND WITH CARDENE GTT INFUSING. PT WAS ABLE TO AMBULATE A FEW STEPS FROM STRETCHER TO BED WITH MINIMAL ASSISTANCE. PT IS A/O. LUNGS DIMINISHED UPPER, COARSE LOWER. PT IS ON 2L NC WHICH SHE STATES SHE WEARS AT HOME. NO COUGH NOTED BUT SOB WITH ACTIVITY NOTED. PT IS NSR ON MONITOR. BS ACTIVE; ABDOMEN SOFT/NON-TENDER. PT REPORTS LAST BM WAS YESTERDAY. PT UP TO BEDSIDE COMMODE TO VOID X 2. PULSES STRONG ALL EXTREMETIES. SKIN W/D/I; SOME BRUISING NOTED ON BILATERAL ARMS. AFEBRILE. CARDENE GTT REMAINS ON; PT'S BP CONTROLLED AT THIS TIME. WILL ATTEMPT TO TITRATE OFF BP ALLOWS. ALL OTHER VSS. PT GIVEN CALL LIGHT AND INSTRUCTED TO NOT GET OUT OF BED WITHOUT ASSISTANCE.
[2024-03-06] MEDS ORDERED: IPRATROPIUM-Albuterol 0.5MG-2.5MG/3 ML NEB PRN (12:20)
[2024-03-06] MEDS ORDERED: METOPROLOL TARTRATE 25 MG/TAB PO SCH (12:30)
[2024-03-06 12:33] LABS: URINE BILIRUBIN - DIPSTICK Negative (NEGATIVE); URINE BLOOD DIPSTICK Negative (NEGATIVE); URINE COLOR Yellow; URINE GLUCOSE - DIPSTICK Negative (NEGATIVE); URINE KETONE Negative (NEGATIVE); URINE LEUK ESTERASE Negative (NEGATIVE); URINE NITRITE - DIPSTICK Negative (Negative); URINE PROTEIN - DIPSTICK Negative (NEG-TRACE); URINE UROBILINOGEN - DIPSTICK 0.2 E.U./dL (0.2)
[2024-03-06] MEDS ORDERED: ONDANSETRON HCl 4 MG/2 ML SDV IV PRN (13:15)
--- NOTE | 2024-03-06 13:25 | NUR ---
PT WAS FEELING NAUSEATED AND VOMITED SMALL AMOUNT. ORDER RECEIVED FOR IV ZOFRAN WHICH WAS GIVEM, WELL PRN MORPHONE FOR PT'S REPORTED 10/10 PAIN FROM HEADACHE.
[2024-03-06] MEDS ORDERED: IPRATROPIUM-Albuterol 0.5MG-2.5MG/3 ML NEB SCH (15:00)
--- NOTE | 2024-03-06 15:00 | NUR ---
NO CHANGES TO PT STATUS. STILL COMPLAINING OF HEADACHE. PT GIVEN ICE PACK FOR COMFORT. VSS. CARDENE GTT TURNED OFF.
--- NOTE | 2024-03-06 17:00 | NUR ---
PT STILL COMPLAINING OF HEADACHE AND VOMITED SMALL AMOUNT. COMFORT MEASURES PROVIDED. VSS.
--- NOTE | 2024-03-06 18:00 | NUR ---
PT MEDICATED FOR HEADACHE AND NAUSEA. PT REMAINS AFEBRILE THOUGH SHE STATES SHE IS HOT. PT REMAINS OFF OF CARDENE GTT. VSS.
[2024-03-06] MEDS ORDERED: Pantoprazole Sodium 40 MG VIAL (Protonix) IV SCH ×2 (19:50→21:00)
[2024-03-06] MEDS ORDERED: DiphenhydrAMINE HCL 50 MG/ML SDV IV ONE (19:50)
[2024-03-06] MEDS ORDERED: KETOROLAC TROMETHAMINE 30 MG/ML SDV IV ONE (19:50)
[2024-03-06] MEDS ORDERED: METOCLOPRAMIDE HCL 10 MG/2 ML SDV IV ONE (19:50)
[2024-03-06] MEDS ORDERED: BUTALBITAL-APAP-CAFFEINE 50-325-40 TAB PO PRN (19:55)
[2024-03-06] MEDS ORDERED: PROMETHAZINE HCL 25 MG/ML AMP IV PRN (19:55)
--- NOTE | 2024-03-06 20:00 | NUR ---
pt assessed , 10/10 pain headach sensative to light , assisted off bedside commode and to bed. ptcomplains of left hip pain from a fall at home. When asked if she had an xray or saw anyone for it she stated no. will pass on in dayshift pt would like this evaluated during this admission.Pt was then vomiting and dry heaving . spoke to DR. Pradhan about her current situation , Dr. pradhan ordered meds. see order and MAR . pt was medicated with good effect . DR Rodriguez had a video visit with the pt and ordered catapress patch.
[2024-03-06] MEDS ORDERED: cloNIDine TRANSDERMAL 0.2MG/24 HR 7-DAY PATCH TD SCH (20:30)
[2024-03-06] MEDS ORDERED: ATORVASTATIN CALCIUM 40 MG/TAB PO SCH (21:00)
[2024-03-06] MEDS ORDERED: traZODone HCL 50 MG/TAB PO SCH (21:00)
[2024-03-06] MEDS ORDERED: ENOXAPARIN SODIUM 40 MG/0.4 ML SYR SC SCH (21:00)
[2024-03-06] MEDS ORDERED: HYDROXYCHLOROQUINE SULFATE 200 MG/TAB PO SCH (21:00)
[2024-03-06] MEDS ORDERED: methylPREDNISolone Sod Succ 40 MG/ML SDV IV SCH (21:00)
[2024-03-06] MEDS ORDERED: GABAPENTIN 300 MG/CAP PO SCH (21:00)
[2024-03-06] MEDS ORDERED: GABAPENTIN 100 MG/CAP PO SCH (21:00)
[2024-03-07] VITALS (20 sets, daily range): BP systolic 114–168; BP diastolic 67–111
--- NOTE | 2024-03-07 | NUR ---
Pt resting comfortably. all monitors on NSR. call swan within reach. No signs or synptoms of distress.
--- NOTE | 2024-03-07 02:00 | NUR ---
pt resting comfortably, NSR, on coach operator BP 116/68,, catapress patch right arm . no distress. call swan within reach.
--- NOTE | 2024-03-07 04:00 | NUR ---
pt assessed , awoken easily and fel back asleep. afebrile. o 2l nc all alarms and monitors on for safety. resting comfortably.no nausea or vomitng. no pain .
[2024-03-07 05:36] LABS: BASO% 0.2 % (0-3); HEMATOCRIT 39.4 % (37.0-47.0); HEMOGLOBIN 12.7 g/dl (12.0-16.0); IMMATURE GRANULOCYTES 0.2 % (0.0-5.0); LYMPH% 24.9 % (15-41); MEAN CORPUSCULAR HGB 31.6 pG CALC (26.0-32.0); MEAN CORPUSCULAR HGB CONC 32.2 g/dL CAL (32.0-36.0); NEUT# 5.63 thou/uL (2.00-7.15); NEUT% 61.7 % (42-76); RED BLOOD COUNT 4.02 mill/uL (4.20-5.60); RED CELL DISTRI WIDTH 13.8 % (11.5-15.5)
[2024-03-07 05:56] LABS: ALBUMIN 3.5 g/dL (3.2-5.0); BILIRUBIN, TOTAL 0.7 mg/dL (0.02-1.3); CHOLESTEROL HDL RATIO 3.7 (<4.4 (CALC)); CREATININE 1.1 mg/dL (0.5-1.0); MAGNESIUM 1.6 mg/dL (1.6-2.3); POTASSIUM 3.1 mmol/l (3.5-5.1); TOTAL PROTEIN 6.1 g/dL (6.3-8.2)
--- NOTE | 2024-03-07 06:26 | NUR ---
rounded on pt daily wt done , p resting comfortably , RR easy unlabored, no distress. call swan within reach .
[2024-03-07] MEDS ORDERED: POTASSIUM CHLORIDE 20 MEQ/TAB PO SCH (08:00)
--- NOTE | 2024-03-07 08:00 | NUR ---
REPORT RECEIVED FROM NIGHT RN. PT HAD NO CARDIAC EVENTS OR CHEST PAIN THROUGHOUT THE NIGHT. PT IS A/O. REPORTS VERY MILD HEADACHE STARTING. LUNGS DIMINISHED/COARSE; PT IS ON 2LNC. NO COUGH OR SOB NOTED. PT REPORTS FEELING MUCH BETTER THAN SHE DID YESTERDAY, NO NAUSEA. NSR ON MONITOR. BS ACTIVE. PULSES STRONG ALL EXTREMETIES. SKIN W/D/I. CALL LIGHT IN REACH, VSS.
[2024-03-07] MEDS ORDERED: PROMETHAZINE HCL 12.5 MG in SODIUM CHLORIDE 0.9% 50 ML IV PRN (08:05)
[2024-03-07] MEDS ORDERED: LOSARTAN Potassium 25 MG/TAB PO SCH (09:00)
[2024-03-07] MEDS ORDERED: buPROPion HCL 150 MG TAB SR PO SCH (09:00)
[2024-03-07] MEDS ORDERED: DiphenhydrAMINE HCL 50 MG/ML SDV IV SCH (09:00)
[2024-03-07] MEDS ORDERED: FUROSEMIDE 20 MG/TAB PO SCH (09:00)
[2024-03-07] MEDS ORDERED: ASPIRIN 81 MG/TAB PO SCH (09:00)
[2024-03-07] MEDS ORDERED: CLOPIDOGREL BISULFATE 75 MG/TAB TAB PO SCH (09:00)
[2024-03-07] MEDS ORDERED: KETOROLAC TROMETHAMINE 15 MG/ML SDV IV SCH (09:00)
[2024-03-07] MEDS ORDERED: METOCLOPRAMIDE HCL 10 MG/2 ML SDV IV SCH (09:00)
[2024-03-07] MEDS ORDERED: FLUTICASONE PROPIONATE (Nasal) 50MCG/SPRAY INH SCH (09:00)
[2024-03-07] MEDS ORDERED: PANTOPRAZOLE SODIUM Sesquihydr 40 MG/TAB PO SCH (09:00)
[2024-03-07] MEDS ORDERED: FLUoxetine HCL 10 MG/CAP PO SCH (09:00)
[2024-03-07] MEDS ORDERED: AZITHROMYCIN 500 MG in SODIUM CHLORIDE 0.9% 250 ML IV SCH (09:30)
--- NOTE | 2024-03-07 09:42 | NUR ---
PT LYING IN BED, MEDICATED FOR HEADACHE PER ORDERS FROM DR. SEGOVIA. PT HAS NOT HAD NAUSEA AND KEPT PO MEDS DOWN THUS FAR.
[2024-03-07] MEDS ORDERED: PROMETHAZINE HCL 25 MG/ML AMP IV PRN (12:00)
--- NOTE | 2024-03-07 12:00 | NUR ---
NO CHANGES TO PT STATUS. PT TOLERATING PO INTAKE FOR LUNCH. NO HEADACHE OR BP ISSUES. CALL LIGHT IN REACH. VSS.
--- NOTE | 2024-03-07 14:29 | NUR ---
PHYSICAL THERAPY AT BEDSIDE TO ASSESS PT.
--- NOTE | 2024-03-07 16:02 | NUR ---
NO CHANGES TO PT STATUS. CALL LIGHT IN REACH. VSS.
--- NOTE | 2024-03-07 16:34 | NUR ---
PT WAS ASKING TO GO HOME TODAY. REVIEWED WITH DR. SEGOVIA WHO WANTED HER TO STAY ONE MORE DAY. PT AGREED TO PLAN.
[2024-03-07] MEDS ORDERED: KETOROLAC TROMETHAMINE 15 MG/ML SDV IV PRN (16:50)
[2024-03-07] MEDS ORDERED: DiphenhydrAMINE HCL 50 MG/ML SDV IV PRN (16:50)
[2024-03-07] MEDS ORDERED: METOCLOPRAMIDE HCL 10 MG/2 ML SDV IV PRN (16:50)
--- NOTE | 2024-03-07 17:36 | NUR ---
TELE-CARDIOLOGY CONSULT COMPLETED.
--- NOTE | 2024-03-07 20:00 | NUR ---
pt assessed . lungs clear dim, 2L oxygen on which is alexandra osorio., discussed follow up appts to keep for her Lupus and cardiology pt reports she has not followed up because she was too sick. pt reports a fall prior to this admission pt feel a pop at times in her left hip , recommended for her to talk to tDR. Mitchell about it in the am and made her a note put on her table to remind her to ask him in the am about possin=ble imaging , and maybe ortho consult. pt NSR RBBB, HR 72 bp 146/72 , pt also reports hr HTN was from not taking her meds at home , she states she takes " alot of meds" [facility] at [facility]. pt educated today on all her in hospital meds. pt communicated understanding . RR easy and unlabored. [id number]% on 2L.
--- NOTE | 2024-03-07 22:00 | NUR ---
pt voided bedsie commode dark urine 250cc, pt encouraged and given water to drink.
--- NOTE | 2024-03-08 | NUR ---
pt awoken easily to put bp cuff on and take bp. and temp , alox4 on 2L resting comfortably. all needs met call swan within reach.
[2024-03-08 00:01] VITALS: BP 119/64
--- NOTE | 2024-03-08 02:00 | NUR ---
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 all safety measures in place.
[2024-03-08 04:00] VITALS: BP 172/141
--- NOTE | 2024-03-08 04:00 | NUR ---
pt assessed no change in assessment, BP cuff repositioned and BP taken result 131/72 HR 72 no ectopy no chest pain or headache. pt resting comfortably. easily awoken to assess. call swan within reach . encourage drinking water. catapress patch on right upper arm.
[2024-03-08 04:21] VITALS: BP 131/72
[2024-03-08 05:25] LABS: BASO% 0.5 % (0-3); EOS% 1.4 % (0-8); HEMATOCRIT 37.2 % (37.0-47.0); HEMOGLOBIN 12.1 g/dl (12.0-16.0); IMMATURE GRANULOCYTES 0.6 % (0.0-5.0); LYMPH% 28.9 % (15-41); MEAN CELL VOLUME 98.7 fL CALC (80.0-100.0); MEAN CORPUSCULAR HGB 32.1 pG CALC (26.0-32.0); MEAN CORPUSCULAR HGB CONC 32.5 g/dL CAL (32.0-36.0); MONO% 12.9 % (2-13); NEUT# 4.41 thou/uL (2.00-7.15); NEUT% 55.7 % (42-76); RED BLOOD COUNT 3.77 mill/uL (4.20-5.60); RED CELL DISTRI WIDTH 13.7 % (11.5-15.5)
[2024-03-08] MEDS ORDERED: LOSARTAN POTASS50 MG PO (05:40)
[2024-03-08] MEDS ORDERED: METOPROL TAR25 M1 PO (05:41)
[2024-03-08] MEDS ORDERED: AMOX/K CLAV875 M1 PO (05:49)
[2024-03-08 05:50] LABS: ALBUMIN 3.1 g/dL (3.2-5.0); BILIRUBIN, TOTAL 0.6 mg/dL (0.02-1.3); CREATININE 1.1 mg/dL (0.5-1.0); MAGNESIUM 1.7 mg/dL (1.6-2.3); POTASSIUM 3.6 mmol/l (3.5-5.1); TOTAL PROTEIN 5.6 g/dL (6.3-8.2)
--- NOTE | 2024-03-08 05:54 | NUR ---
pt assisted to te bedside commode standby assist, voided 450 , darker yellow urine , urine appears to be getting bag checker compaed to the tea color at the beginning of the shift. call swan within reach. all monitors on. no pain. no distress all needs met.
--- NOTE | 2024-03-08 07:42 | NUR ---
PATIENT A/O X3; ON 2L OF ; BREATHING UNLABORED AND EVEN; DENIED ANY PAIN; DENIED NEEDING ANYTHING; DENIED ANY N/D/V AT THIS TIME; NO S/S OF DISTRESS AT THIS TIME; TELE MONITOR ATTACHED AND WORKING WITH NO ISSUES; IV SITE #20G ON RAC CLEAN AND INTACT SALINE LOCKED WITH NO ISSUES; PATIENT DENIED ANY COMPLAINTS AT THIS TIME; PATIENT SITTING SEMI SMYTH IN BED EATING BREAKFAST; CALL LIGHT WITHIN REACH,VERBALIZED UNDERSTANDING ON HOW TO USE, PERSONAL ITEMS WITHIN REAC, BED IN LOWEST POSTION; BSC NEXT TO BED
[2024-03-08 08:52] VITALS: BP 150/84
[2024-03-08 08:53] VITALS: BP 150/84
--- NOTE | 2024-03-08 10:15 | NUR ---
PATIENT A/O X3; ON 2L OF ; BREATHING UNLABORED AND EVEN; DENIED ANY PAIN; DENIED ANY N/D/V AT THIS TIME;TELE LEADS ARE ATTACHED AND WORKINGL VITALS STABLE; IV SITE CLEAN AND INTACT RUNNIN WITH ZITHROMAX; DENIED NEEDING ANYTHING; DICHARGE FORMS COMPLETED AWAITING HER RIDE; CALL LIGHT WITHIN REACH,VERBALIZED UNDERSTANDING ON HOW TO USE, PERSONALITEMS WITHIN REACH,BED IN LOWEST POSTION; BSC NEXT TO BED
--- NOTE | 2024-03-08 10:55 | NUR ---
IV site discontinued, cath intact. No edema , no redness, voices no discomfort. Discharge instructions given. Patient verbalizes understanding of same. Discharged in stable condition via Wheelchair to Home with family. All belongings sent with pt.
== END 2024-03-08 10:50 | DRG 304 ==
LOC: ED 04:33 → ED-I 09:26 → ED 09:47 → ICU 09:48
PROVIDERS: Family Medicine; ADMIT Student in an Organized Health Care Education/Training Program; ATTEND Student in an Organized Health Care Education/Training Program
DX: I16.1 Hypertensive emergency (principal); J18.9 Pneumonia, unspecified organism; I50.32 Chronic diastolic (congestive) heart failure; J44.0 Chronic obstructive pulmonary disease with (acute) lower respiratory infection; I11.0 Hypertensive heart disease with heart failure; G43.909 Migraine, unspecified, not intractable, without status migrainosus; I48.0 Paroxysmal atrial fibrillation; M32.9 Systemic lupus erythematosus, unspecified; F41.9 Anxiety disorder, unspecified; F32.A Depression, unspecified; Z99.81 Dependence on supplemental oxygen; Z87.01 Personal history of pneumonia (recurrent); Z20.822 Contact with and (suspected) exposure to COVID-19; Z87.891 Personal history of nicotine dependence
CPT/HCPCS: J1650; J2470; Q9967

== ENCOUNTER 2024-05-17 19:40 | Emergency (ER) | payer MEDICARE ==
[~2024-05-17] VITALS: Ht 162.6 cm; Wt 72.6 kg
[~2024-05-17 19:40] MED LIST changes: +AMOX/K CLAV875 M1 PO; +LASIX 20 MG TAB20 MG PO; +LOSARTAN POTASS50 MG PO; +NARCAN4 MG/0.1 M; +OXY1; +TRELEGY ELLIPTA1 AE1 IN
[2024-05-17 19:50] VITALS: BP 99/45
[2024-05-17] MEDS ORDERED: SODIUM CHLORIDE 0.9% 1,000 ML IV ONE (19:50)
[2024-05-17] MEDS ORDERED: KETOROLAC TROMETHAMINE 30 MG/ML SDV IV ONE (19:50)
[2024-05-17] MEDS ORDERED: THIAMINE HCL 100 MG/ML 2ML VIAL IV ONE (19:50)
[2024-05-17 20:00] VITALS: BP 96/52
[2024-05-17 20:21] LABS: BASO% 0.2 % (0-3); EOS% 0.4 % (0-8); HEMOGLOBIN 10.2 g/dl (12.0-16.0); IMMATURE GRANULOCYTES 0.6 % (0.0-5.0); LYMPH% 27.3 % (15-41); MEAN CELL VOLUME 95.7 fL CALC (80.0-100.0); MEAN CORPUSCULAR HGB 31.4 pG CALC (26.0-32.0); MEAN CORPUSCULAR HGB CONC 32.8 g/dL CAL (32.0-36.0); MONO% 10.6 % (2-13); NEUT# 6.08 thou/uL (2.00-7.15); NEUT% 60.9 % (42-76); RED BLOOD COUNT 3.25 mill/uL (4.20-5.60); RED CELL DISTRI WIDTH 13.7 % (11.5-15.5)
[2024-05-17 20:22] LABS: HEMATOCRIT 31.1 % (37.0-47.0)
[2024-05-17 20:36] LABS: ALBUMIN 3.6 g/dL (3.2-5.0); CREATININE 1.6 mg/dL (0.5-1.0); MAGNESIUM 1.7 mg/dL (1.6-2.3); POTASSIUM 3.2 mmol/l (3.5-5.1); TOTAL PROTEIN 5.8 g/dL (6.3-8.2)
[2024-05-17 20:37] LABS: BILIRUBIN, TOTAL 0.2 mg/dL (0.02-1.3)
[2024-05-17 20:53] VITALS: BP 111/63
[2024-05-17 21:00] VITALS: BP 108/57
[2024-05-17 21:48] LABS: URINE BILIRUBIN - DIPSTICK Negative (NEGATIVE); URINE BLOOD DIPSTICK Negative (NEGATIVE); URINE COLOR Yellow; URINE GLUCOSE - DIPSTICK Negative (NEGATIVE); URINE KETONE Trace mg/dL (NEGATIVE); URINE LEUK ESTERASE Negative (NEGATIVE); URINE NITRITE - DIPSTICK Negative (Negative); URINE PH 5.5 (4.5-8.0); URINE PROTEIN - DIPSTICK Negative (NEG-TRACE); URINE SPECIFIC GRAVITY >=1.030; URINE UROBILINOGEN - DIPSTICK 0.2 E.U./dL (0.2)
[2024-05-17] MEDS ORDERED: POTASSIUM CHLORIDE 20 MEQ/TAB PO ONE (21:55)
[2024-05-17 22:00] VITALS: BP 120/64
[2024-05-17 23:00] VITALS: BP 117/65
[2024-05-17] MEDS ORDERED: MORPHINE SULFATE 4 MG/ML VIAL IV ONE (23:00)
[2024-05-17] MEDS ORDERED: PROCHLORPERAZINE EDISYLATE 10 MG/2 ML SDV IV ONE (23:00)
[2024-05-17] MEDS ORDERED: hydrALAZINE HCL 20 MG/ML VIAL(1 ML) IV ONE (23:00)
[2024-05-18] VITALS: BP 120/65
[2024-05-18 01:00] VITALS: BP 134/82
[2024-05-18 01:57] VITALS: BP 134/82
== END 2024-05-18 02:09 | disposition home or self-care (01) ==
LOC: ED 19:40
PROVIDERS: Family Medicine
DX: S93.402A Sprain of unspecified ligament of left ankle, initial encounter (principal); S00.83XA Contusion of other part of head, initial encounter; F10.129 Alcohol abuse with intoxication, unspecified; Y90.6 Blood alcohol level of 120-199 mg/100 ml; I11.0 Hypertensive heart disease with heart failure; I50.9 Heart failure, unspecified; J43.9 Emphysema, unspecified; W19.XXXA Unspecified fall, initial encounter; Z87.891 Personal history of nicotine dependence; Z99.81 Dependence on supplemental oxygen

== ENCOUNTER 2024-06-03 14:01 | Emergency (ER) | payer MEDICARE ==
[~2024-06-03] VITALS: Ht 162.6 cm; Wt 65.7 kg
[2024-06-03] VITALS (10 sets, daily range): BP systolic 152–278; BP diastolic 91–149
[2024-06-03] MEDS ORDERED: IPRATROPIUM-Albuterol 0.5MG-2.5MG/3 ML NEB ONE ×3 (14:20)
[2024-06-03] MEDS ORDERED: methylPREDNISolone SODIUM SUCC 125 MG/2 ML SDV IV ONE (14:20)
[2024-06-03 14:40] LABS: BASO% 0.3 % (0-3); EOS% 2.8 % (0-8); HEMATOCRIT 39.2 % (37.0-47.0); HEMOGLOBIN 12.9 g/dl (12.0-16.0); IMMATURE GRANULOCYTES 0.4 % (0.0-5.0); LYMPH% 26.6 % (15-41); MEAN CELL VOLUME 96.8 fL CALC (80.0-100.0); MEAN CORPUSCULAR HGB 31.9 pG CALC (26.0-32.0); MEAN CORPUSCULAR HGB CONC 32.9 g/dL CAL (32.0-36.0); MONO% 12.7 % (2-13); NEUT# 5.38 thou/uL (2.00-7.15); NEUT% 57.2 % (42-76); RED BLOOD COUNT 4.05 mill/uL (4.20-5.60); RED CELL DISTRI WIDTH 14.3 % (11.5-15.5)
[2024-06-03 14:50] LABS: CREATININE 1.4 mg/dL (0.5-1.0)
[2024-06-03 14:55] LABS: POTASSIUM 3.9 mmol/l (3.5-5.1)
[2024-06-03 14:56] LABS: ALBUMIN 4.7 g/dL (3.2-5.0); BILIRUBIN, TOTAL 0.5 mg/dL (0.02-1.3); TOTAL PROTEIN 7.6 g/dL (6.3-8.2)
[2024-06-03 14:59] LABS: PROTHROMBIN TIME 9.6 SECONDS (9.0-12.5)
[2024-06-03] MEDS ORDERED: ZPAK PO (15:34)
[2024-06-03] MEDS ORDERED: PREDNISONE50 MG PO (15:34)
[2024-06-03] MEDS ORDERED: ACETAMINOPHEN 325 MG/TAB PO ONE (15:35)
[2024-06-03] MEDS ORDERED: ORPHENADRINE CITRATE 30 MG/ML AMP IV ONE (15:35)
[2024-06-04] MEDS ORDERED: TOPROL XL50 MG PO (21:59)
[2024-06-04] MEDS ORDERED: DEXILANT30 MG PO (22:00)
[2024-06-04] MEDS ORDERED: COZAAR50 MG PO (22:00)
[2024-06-04] MEDS ORDERED: AMLODIPINE BESY10 MG PO (22:01)
[2024-06-07] MEDS ORDERED: AMLODIPINE BESY10 MG PO (08:55)
[2024-06-07] MEDS ORDERED: METOPROLOL TART50 MG PO (08:57)
[2024-06-10] MEDS ORDERED: LORTAB 1010 MG PO (09:19)
[2024-06-10] MEDS ORDERED: LIDOCAINE PAIN RE4 % TD (09:36)
== END 2024-06-03 15:49 | disposition home or self-care (01) ==
LOC: ED 14:01
PROVIDERS: Nurse Practitioner
DX: J44.1 Chronic obstructive pulmonary disease with (acute) exacerbation (principal); I11.0 Hypertensive heart disease with heart failure; I50.9 Heart failure, unspecified; J43.9 Emphysema, unspecified; Z99.81 Dependence on supplemental oxygen; Z87.891 Personal history of nicotine dependence

== ENCOUNTER 2024-07-27 06:39 | Emergency (ER) | payer MEDICARE ==
[2024-07-27] VITALS (11 sets, daily range): BP systolic 138–168; BP diastolic 71–103
[~2024-07-27] VITALS: Ht 162.6 cm; Wt 68.0 kg
[~2024-07-27 06:39] MED LIST changes: +AMLODIPINE BESY10 MG PO; +COZAAR50 MG PO; +DEXILANT30 MG PO; +LIDOCAINE PAIN RE4 % TD; +LORTAB 1010 MG PO; +METOPROLOL TART50 MG PO; +PREDNISONE50 MG PO; +TOPROL XL50 MG PO; +ZPAK PO
[2024-07-27 07:22] LABS: BASO% 0.2 % (0-3); EOS% 0.3 % (0-8); HEMATOCRIT 38.5 % (37.0-47.0); HEMOGLOBIN 13.2 g/dl (12.0-16.0); IMMATURE GRANULOCYTES 0.1 % (0.0-5.0); LYMPH% 21.5 % (15-41); MEAN CORPUSCULAR HGB 31.8 pG CALC (26.0-32.0); MEAN CORPUSCULAR HGB CONC 34.3 g/dL CAL (32.0-36.0); MONO% 12.6 % (2-13); NEUT# 5.84 thou/uL (2.00-7.15); NEUT% 65.3 % (42-76); RED BLOOD COUNT 4.15 mill/uL (4.20-5.60); RED CELL DISTRI WIDTH 12.8 % (11.5-15.5)
[2024-07-27 07:29] LABS: MEAN CELL VOLUME 92.8 fL CALC (80.0-100.0)
[2024-07-27] MEDS ORDERED: KETOROLAC TROMETHAMINE 30 MG/ML SDV IV ONE (07:40)
[2024-07-27 07:59] LABS: CREATININE 0.8 mg/dL (0.5-1.0); POTASSIUM 3.1 mmol/l (3.5-5.1)
[2024-07-27] MEDS ORDERED: AMOXICILLIN & POT CLAVULANATE 875 MG/TAB PO ONE (08:10)
[2024-07-27] MEDS ORDERED: AZITHROMYCIN 250 MG/TAB PO ONE (08:10)
[2024-07-27] MEDS ORDERED: AMOX/K CLAV875 M1 PO (08:30)
[2024-07-27] MEDS ORDERED: ZITHROMAX Z-PA250 MG PO (08:30)
== END 2024-07-27 09:22 | disposition home or self-care (01) ==
LOC: ED 06:39
PROVIDERS: Family Medicine
DX: J18.9 Pneumonia, unspecified organism (principal); R07.89 Other chest pain; J44.0 Chronic obstructive pulmonary disease with (acute) lower respiratory infection; I11.0 Hypertensive heart disease with heart failure; I50.9 Heart failure, unspecified; J43.9 Emphysema, unspecified; Z87.891 Personal history of nicotine dependence; Z99.81 Dependence on supplemental oxygen

== ENCOUNTER 2024-09-04 10:12 | Emergency (ER) | payer MEDICARE ==
[2024-09-04] VITALS (24 sets, daily range): BP systolic 63–155; BP diastolic 33–116
[~2024-09-04] VITALS: Ht 162.6 cm; Wt 74.0 kg
[~2024-09-04 10:12] MED LIST changes: +ZITHROMAX Z-PA250 MG PO
[2024-09-04 10:35] LABS: URINE BILIRUBIN - DIPSTICK Negative (NEGATIVE); URINE BLOOD DIPSTICK Negative (NEGATIVE); URINE GLUCOSE - DIPSTICK Negative (NEGATIVE); URINE KETONE Negative (NEGATIVE); URINE LEUK ESTERASE Trace (NEGATIVE); URINE NITRITE - DIPSTICK Negative (Negative); URINE PROTEIN - DIPSTICK 30 mg/dL (NEG-TRACE); URINE SPECIFIC GRAVITY 1.015; URINE UROBILINOGEN - DIPSTICK 0.2 E.U./dL (0.2)
[2024-09-04] MEDS ORDERED: LORazepam 2 MG/ML IV ONE ×3 (10:40→14:50)
[2024-09-04 10:42] LABS: URINE COLOR Yellow
[2024-09-04 10:50] LABS: URINE EPITHELIAL CELLS FEW EPI/hpf (0-FEW); URINE MUCUS FEW hpf (NONE-FEW); URINE WBC 0-2 WBC/hpf (0-5)
[2024-09-04 10:57] LABS: BASO% 0.2 % (0-3); EOS% 0.1 % (0-8); HEMATOCRIT 35.7 % (37.0-47.0); HEMOGLOBIN 12.1 g/dl (12.0-16.0); IMMATURE GRANULOCYTES 0.2 % (0.0-5.0); LYMPH% 24.5 % (15-41); MEAN CELL VOLUME 93.9 fL CALC (80.0-100.0); MEAN CORPUSCULAR HGB 31.8 pG CALC (26.0-32.0); MEAN CORPUSCULAR HGB CONC 33.9 g/dL CAL (32.0-36.0); MONO% 10.1 % (2-13); NEUT# 8.29 thou/uL (2.00-7.15); NEUT% 64.9 % (42-76); RED BLOOD COUNT 3.8 mill/uL (4.20-5.60); RED CELL DISTRI WIDTH 12.8 % (11.5-15.5)
[2024-09-04 11:14] LABS: ALKALINE PHOSPHATASE 161 u/l (38-126); ANION GAP 14 (6-22 (CALC)); BUN 9 mg/dL (7-17); BUN/CREATININE RATIO 10 (12-20 (CALC)); CARBON DIOXIDE 25 mmol/l (22-30); CHLORIDE 103 mmol/l (95-108); CPK 281 u/l (30-135); ESTIMATED GFR 65 ML/MIN (>=90 (CALC)); ETHYL ALCOHOL 0 mg/dl (0-30); LIPASE 150 u/l (23-300); POTASSIUM 2.8 mmol/l (3.5-5.1); SGOT/AST 45 u/l (14-36); SODIUM 140 mmol/l (137-146); TOTAL PROTEIN 6.8 g/dL (6.3-8.2)
[2024-09-04 11:16] LABS: ALBUMIN 4.3 g/dL (3.2-5.0); BILIRUBIN, TOTAL 0.7 mg/dL (0.02-1.3)
[2024-09-04 11:44] LABS: TSH, 3RD GENERATION 0.53 uIU/mL (0.47 - 4.68)
[2024-09-04] MEDS ORDERED: POTASSIUM CHLORIDE 20 MEQ/TAB PO ONE (12:15)
[2024-09-04] MEDS ORDERED: oxyCODONE 5MG/ ACETAMINOPHEN 325MG TAB PO ONE (12:20)
[2024-09-04] MEDS ORDERED: MIDAZOLAM HCL 2 MG/2 ML VIAL IV ONE ×3 (13:30→18:00)
[2024-09-04] MEDS ORDERED: HALOPERIDOL LACTATE 5 MG/ML SDV IV ONE ×2 (13:30→14:50)
[2024-09-04] MEDS ORDERED: DiphenhydrAMINE HCL 50 MG/ML SDV IV ONE ×2 (13:35→14:50)
[2024-09-04] MEDS ORDERED: MAGNESIUM SULFATE 50% 1 GM/2 ML IV ONE (14:25)
[2024-09-04] MEDS ORDERED: POTASSIUM CHLORIDE 20MEQ 100 ML IV ONE ×2 (14:25→16:05)
[2024-09-04] MEDS ORDERED: SODIUM CHLORIDE 0.9% 1,000 ML IV ONE ×2 (14:25→18:30)
[2024-09-04] MEDS ORDERED: MAGNESIUM SULFATE HEPTAHYDRATE 50 ML IV ONE (14:45)
[2024-09-04 18:16] LABS: MAGNESIUM 2.4 mg/dL (1.6-2.3); POTASSIUM 3.7 mmol/l (3.5-5.1)
[2024-09-05 00:01] VITALS: BP 136/120
[2024-09-05 00:24] VITALS: BP 156/103
[2024-09-05 00:31] VITALS: BP 161/98
[2024-09-05] MEDS ORDERED: ACETAMINOPHEN 325 MG/TAB PO ONE (00:45)
[2024-09-05 09:25] VITALS: BP 127/91
[2024-09-05 10:54] VITALS: BP 127/91
== END 2024-09-05 10:30 ==
LOC: ED 10:12
PROVIDERS: Emergency Medicine
DX: F23 Brief psychotic disorder (principal); E87.6 Hypokalemia; I11.0 Hypertensive heart disease with heart failure; I50.9 Heart failure, unspecified; J43.9 Emphysema, unspecified; M32.9 Systemic lupus erythematosus, unspecified; F41.9 Anxiety disorder, unspecified; Z99.81 Dependence on supplemental oxygen; Z87.891 Personal history of nicotine dependence; Z20.822 Contact with and (suspected) exposure to COVID-19
CPT/HCPCS: J1200; J1630; J2060; J2359; J3475; J3480